=== PATIENT | female | born 1985 | race Hispanic/Latino ===

== ENCOUNTER 2016-12-21 09:10 | Emergency (ER) | payer SELFPAY ==
[2016-12-21 09:31] VITALS: BP 113/61
[2016-12-21] MEDS ORDERED: KEPPRA 1,000 MG/NS 0.75% 100ML 1,000 MG/100 ML BAG IV ONE (09:35)
[2016-12-21] MEDS ORDERED: KEPPRA 1,000 MG in D5W 100 ML IV ONE ×2 (09:40→10:00)
[2016-12-21] MEDS ORDERED: FIORICET PO ONE (10:22)
--- NOTE | 2016-12-21 10:33 | Emergency Department Report ---
HPI - General Chief Complaint: Seizure Time Seen by Provider: 12/21/16 10:06 - HPI HPI: Room 24 The patient is a 31-year-old female presenting with a chief complaint of seizure. The patient states this morning he had flickering that she was reported to have a generalized tonic-clonic seizure lasting approximately 5 minutes. The patient states her last seizure occurred over one year ago. The patient states while she was incarcerated recently she was taking Keppra and did not have any seizures. The patient states she stopped taking Keppra 2016 after she was released from incarceration. The patient now complains of a slight headache and gives a score of 8/10. Patient denies any other complaints Location: Central Nervous system Duration: 5 minutes Quality: Generalized tonic-clonic Severity: Moderate Modifying factors: [see above] Context: [see above] Mode of transportation: [not driving] ED Past Medical Hx - Past Medical History Previous Medical History?: Yes Hx Seizures: Yes - Surgical History Past Surgical History?: No - Family History Family history: no significant - Social History Smoking Status: Former Smoker Substance Use Type: None (denies illicit drug use) - Medications Home Medications: Home Medications Medication Instructions Recorded Confirmed Last Taken Type ALPRAZolam [Alprazolam] 1 tab PO TID 08/27/14 08/27/14 08/26/14 History 1tab Suboxone 8 mg-2 mg SL Film 08/27/14 08/27/14 08/27/14 05:00 History 8mg-2m buPROPion SR [Wellbutrin SR] 150 mg PO QAM 08/27/14 08/27/14 08/26/14 10:00 History 1 tab Acetaminophen/Codeine 1 tab PO Q4HR PRN #30 tablet 08/28/14 Unknown Rx [Acetaminophen-Codeine #3 TAB] Ferrous Sulfate [Feosol 325 MG tab] 325 mg PO BID #60 tablet 08/28/14 Unknown Rx Ibuprofen [Motrin 600 MG tab] 600 mg PO Q6H PRN #30 tablet 08/28/14 Unknown Rx levETIRAcetam [Keppra TAB] 500 mg PO BID #90 tablet 12/21/16 Unknown Rx ED Review of Systems ROS: Stated complaint: SEIZURE Other details as noted in HPI Comment: All other systems reviewed and negative Constitutional: denies: chills, fever Eyes: denies: eye pain, eye discharge, vision change ENT: denies: ear pain, throat pain Respiratory: denies: cough, shortness of breath, wheezing Cardiovascular: denies: chest pain, palpitations Endocrine: no symptoms reported Gastrointestinal: denies: abdominal pain, nausea, diarrhea Genitourinary: denies: urgency, dysuria, discharge Musculoskeletal: denies: back pain, joint swelling, arthralgia Skin: denies: rash, lesions Neurological: headache, other (seizure) Psychiatric: denies: anxiety, depression Hematological/Lymphatic: denies: easy bleeding, easy bruising Physical Exam - Physical Exam Vital Signs: Vital Signs 12/21/16 09:28 Pulse Rate 113 H Respiratory 18 Rate Blood Pressure 113/61 O2 Sat by Pulse 100 Oximetry General: Heart rate 95 at time of physical exam Physical Exam: GENERAL: The patient is well-developed well-nourished female lying on stretcher not appearing to be in acute distress. [] HEENT: Normocephalic. Atraumatic. Extraocular motions are intact. Patient has moist mucous membranes. NECK: Supple. No meningitic signs are noted. Trachea midline CHEST/LUNGS: Clear to auscultation. There is no respiratory distress noted. HEART/CARDIOVASCULAR: Regular. There is no tachycardia. There is no gallop rub or murmur. ABDOMEN: Abdomen is soft, nontender. Patient has normal bowel sounds. There is no abdominal distention. SKIN: There is no rash. There is no edema. There is no diaphoresis. NEURO: The patient is awake, alert, and oriented. The patient is cooperative. The patient has no focal neurologic deficits. The patient has normal speech. Cranial nerves II through XII grossly intact, no drift MUSCULOSKELETAL: There is no evidence of acute injury. ED Course Vital Signs 12/21/16 09:28 Pulse Rate 113 H Respiratory 18 Rate Blood Pressure 113/61 O2 Sat by Pulse 100 Oximetry ED Medical Decision Making - Differential Diagnosis epilepsy Critical care attestation.: If time is entered above; I have spent that time in minutes in the direct care of this critically ill patient, excluding procedure time. ED Disposition Clinical Impression: Seizure Disposition: DC-01 TO HOME OR SELFCARE Is pt being admited?: No Does the pt Need Aspirin: No Condition: Stable Instructions: Epilepsy (ED), Women and Epilepsy (ED) Additional Instructions: Return to the emergency department immediately should you develop worsening symptoms, fever, inability to tolerate food or liquid or any other concerns. Prescriptions: levETIRAcetam [Keppra TAB] 500 mg PO BID #90 tablet Referrals: KRISTIN MITCHELL MD [Primary Care Provider] - 3-5 Days MARY DIEGO MD [Staff Physician] - 3-5 Days (Dr. Diego is a neurologist. Please follow up with him for further evaluation) Time of Disposition: 10:35
== END 2016-12-21 11:00 | disposition home or self-care (01) ==
LOC: ED 09:10
DX: R56.9 Unspecified convulsions (principal); Z87.891 Personal history of nicotine dependence
CPT/HCPCS: 96365; 99283; J1953

== ENCOUNTER 2019-03-08 08:25 | Observation (INO) | payer MEDICAID ==
[~2019-03-08 08:25] MED LIST: NEOMY 40 MG/POLYMYXIN B 200,000 UNITS/ML (GU) AMPULE IR ONE; fentaNYL 100 MCG/2 ML INJ IV NR
--- NOTE | 2019-03-08 08:49 | History and Physical Report ---
History of Present Illness Date of examination: 03/08/19 Date of admission: 03/08/2019 Chief complaint: chronic pelvic pain History of present illness: 33-year-old with a history of worsening chronic pelvic pain. The patient has lateral long-standing history of dyspareunia and pelvic pain. She has undergone medical management of her symptoms without significant improvement. Also reports episodes of abnormal uterine bleeding. The patient has elected to undergo definitive surgical management. Past History Past Medical History: seizure, other (anxiety and depression) Past Surgical History: D&C, other (foot surgical procedure) Social history: smoking, other (substance abuse) - Obstetrical History : 4 Para: 3 Hx # Term Pregnancies: 3 Number of Pregnancies: 0 Spontaneous Abortions: 1 Induced : 0 Number of Living Children: 3 Medications and Allergies Allergies Allergy/AdvReac Type Severity Reaction Status Date / Time No Known Allergies Allergy Unverified 03/07/19 16:12 Home Medications Medication Instructions Recorded Confirmed Last Taken Type ALPRAZolam [Xanax TAB] 2 mg PO BID 03/07/19 03/07/19 Unknown History Mirtazapine [Remeron 30mg TAB] 30 mg PO HS 03/07/19 03/07/19 Unknown History levETIRAcetam [Keppra TAB] 750 mg PO BID 03/07/19 03/07/19 Unknown History oxyCODONE [roxiCODONE] 5 mg PO Q6HR PRN 03/07/19 03/07/19 Unknown History Active Meds: Active Medications Celecoxib (Celebrex) 200 mg PO PREOP NR Stop: 03/08/19 18:00 Fentanyl (Sublimaze) 100 mcg IV ONCE NR Stop: 03/08/19 18:00 Gabapentin (Neurontin) 300 mg PO PREOP NR Stop: 03/08/19 18:00 Lactated Ringer's (Lactated Ringers) 1,000 mls @ 100 mls/hr IV DIRECT JACK Midazolam HCl (Versed) 2 mg IV PREOP NR Stop: 03/08/19 23:59 Review of Systems All systems: negative Genitourinary: pelvic pain - Physical Exam Breasts: Positive: deferred Cardiovascular: Regular rate Lungs: Positive: Clear to auscultation Abdomen: Positive: normal appearance Results All other labs normal. Assessment and Plan - Patient Problems (1) Chronic pelvic pain in female Current Visit: Yes Status: Acute Plan to address problem: The patient is schedule for a robotic hysterectomy and bilateral salpingectomy (2) Anxiety Current Visit: No Status: Acute
[2019-03-08] MEDS ORDERED: CELECOXIB 200 MG CAP PO NR (09:00)
[2019-03-08] MEDS ORDERED: ceFAZolin/Water 2 GM/20 ML 2 GM/20 ML SYRINGE IV NR (09:00)
[2019-03-08] MEDS ORDERED: GABAPENTIN 300 MG CAP PO NR (09:00)
[2019-03-08] MEDS ORDERED: MIDAZOLAM 2 MG/2 ML INJ IV NR (09:00)
[2019-03-08] MEDS ORDERED: LACTATED RINGERS 1,000 ML IV SCH (09:00)
--- NOTE | 2019-03-08 09:14 | Anesthesia Consultation ---
Anesthesia Consult and Med Hx Date of service: 03/08/19 - Airway Anesthetic Teeth Evaluation: Dentures ROM Head & Neck: Adequate Mental/Hyoid Distance: Adequate Mallampati Class: Class II Intubation Access Assessment: Probably Good - Pulmonary Exam CTA: Yes - Cardiac Exam Cardiac Exam: RRR - Pre-Operative Health Status ASA Pre-Surgery Classification: ASA3 Proposed Anesthetic Plan: General Nerve Block: TAP - Pulmonary Hx Smoking: Yes Hx Asthma: Yes (last inhaler use 1 yr ago) Hx Respiratory Symptoms: No - Cardiovascular System Hx Hypertension: No Hx Heart Attack/AMI: No - Central Nervous System Hx Seizures: Yes (last seizure many yrs ago; will given usual dose keppra in preop) CVA: No Hx Psychiatric Problems: Yes (PTSD) - Gastrointestinal Hx Gastroesophageal Reflux Disease: No - Endocrine Hx Renal Disease: No Hx Liver Disease: No Hx Insulin Dependent Diabetes: No Hx Non-Insulin Dependent Diabetes: No Hx Thyroid Disease: No - Other Systems Hx Alcohol Use: No Hx Substance Use: Yes (past hx) Hx Obesity: No - Additional Comments Anesthesia Medical History Comments: No hx anesthetic complications.
--- NOTE | 2019-03-08 09:14 | Anesthesia Day of Surgery ---
Anesthesia Day of Surgery - Day of Surgery Patient Examined: Yes Patient H&P Reviewed: Yes Patient is NPO: Yes
[2019-03-08] MEDS ORDERED: levETIRAcetam 500 MG TAB PO NR (09:15)
[2019-03-08] MEDS ORDERED: dexAMETHasone 4 MG/ML VIAL ONE (09:39)
[2019-03-08] MEDS ORDERED: BUPIVACAINE-EPINEPHRINE/PF 0.25%-1:200,000 (30 ML) VIAL INFILTRATI ONE (09:39)
[2019-03-08] MEDS ORDERED: LIDOCAINE (1%) 10 MG/1 ML VIAL 20 ML MDV ONE (09:50)
[2019-03-08 09:59] LABS: Hematocrit 29.6 % (30.3-42.9); Hemoglobin 10.1 gm/dl (10.1-14.3); Mean Corpuscular HGB Conc 34 % (30-34); Mean Corpuscular Volume 89 fl (79-97); Platelet Count 210 K/mm3 (140-440); Red Blood Count 3.32 M/mm3 (3.65-5.03)
[2019-03-08] MEDS ORDERED: levETIRAcetam 500 MG/5 ML ORAL LIQD PO NR (10:00)
[2019-03-08] MEDS ORDERED: HYDROmorphone 1 MG/1 ML INJ ONE ×2 (10:13→12:52)
[2019-03-08] MEDS ORDERED: PROPOFOL 200 MG/20 ML VIAL IV ONE (10:13)
[2019-03-08] MEDS ORDERED: levETIRAcetam 500 MG/5 ML ORAL LIQD PO ONE (10:21)
[2019-03-08] MEDS ORDERED: NEOMY 40 MG/POLYMYXIN B 200,000 UNITS/ML (GU) AMPULE IR ONE (11:05)
[2019-03-08] MEDS ORDERED: SODIUM CHLORIDE 0.9% IRR 1,500 ML BOTTLE IR ONE (11:05)
--- NOTE | 2019-03-08 11:44 | Operative Report ---
Operative Report Operative Report: Date of surgery: 03/08/2019 Preoperative diagnoses: Chronic pelvic pain Postoperative diagnoses: Same as above Procedure: Robotic hysterectomy; Bilateral salpingectomy Surgeon: Sanjana Barrett M.D. School Aide: Leilani Drake Anesthesia: Gen. endotracheal anesthesia Estimated blood loss: 50 mL Pathology: Uterus, cervix, bilateral tubes Indication: 33-year-old with a history of worsening chronic pelvic pain. The patient failed medical management and elected to undergo definitive s urgical management. Procedure: The patient was taken to the operating room and given general endotracheal anesthesia without complication. She is prepped and draped in a normal sterile fashion. A bivalve speculum was placed in the patient's vagina and a single- tooth tenaculum placed on the anterior lip of the cervix. The uterus was sounded with the uterine sound. A [employer]Barn uterine manipulator was placed in the bivalve speculum was then removed. Attention was then turned to the patient's abdomen where a millimeter supra umbilical skin incision was then made. A Veress needle was placed and peritoneal entry was verified water-filled syringe. Insufflation of the peritoneal cavity was performed with CO2 gas. The 12 mm trocar was then placed under direct visualization. An additional 8 mm trocar was placed on the patient's left and right lateral side just opposite of the supraumbilical trocar. An additional 5 mm right lateral trocar was then placed as the accessory port. In the supraumbilical 12 mm trocar site, the Gato Arboleda device was used to place 0 vicryl suture that was secured with a hemostat. The patient was then placed in steep Trendelenburg. General survey normal uterus tubes and ovaries. No evidence of endometriotic implants. The da Leroy robot was then engaged. A fenestrated forcep was placed in arm 2 and a vessel sealer was placed in arm 1. The surgeon then transferred to the surgical console. The mesosalpinx was then isolated on the right. The vessel sealer was used to coagulate the mesosalpinx which was then transected. The tube was pedraza sected from the ovary. The tubo-ovarian ligament was then coagulated and transected. The round ligament was then coagulated and transected also. The vesicouterine peritoneum was then entered from the patient's right side. The uterine vessels were then coagulated with the vessel sealer. The vessels were then transected . Attention was then turned to the patient's left side where the tubo-ovarian ligament and mesosalpinx were again isolated coagulated and transected. The vesical peritoneum was then entered from the left and joined in the midline. Peritoneum was reflected off of the lower uterine segment. Uterine vessels were then coagulated and then transected. The blood supply to the uterus was adequately contained, a posterior colpotomy was made. The V care ring was visualized. Posterior colpotomy was created with the monopolar scissors. The incision was continued circumferentially until anterior colpotomy was made. The cervix and uterus were amputated from the vaginal cuff. The uterus was then removed along with the tubes bilaterally through the vagina and a warm laparotomy sponge was placed and maintain the pneumoperitoneum. The vaginal cuff was then closed in a running fashion with V lock suture. Irrigation of the pelvis was performed. Hemoblast was applied to the incision. The skin was then reapproximated with 4-0 Monocryl. The tissue was sent to pathology which included the cervix, uterus and tubes. The patient was then successfully extubated. She was then taken to the recovery room in stable condition. All sponge laps and needle counts were correct x2.
[2019-03-08] MEDS ORDERED: GLYCOPYRROLATE 0.4 MG/2 ML INJ ONE (11:47)
[2019-03-08] MEDS ORDERED: LIDOCAINE MPF (2%) 20 MG/1 ML VIAL 5 ML ONE (11:47)
[2019-03-08] MEDS ORDERED: NEOSTIGMINE 10MG/10 ML INJ MDV ONE (11:47)
[2019-03-08] MEDS ORDERED: ROCURONIUM 50 MG/5 ML INJ IV ONE (11:47)
[2019-03-08] MEDS ORDERED: SUCCINYLCHOLINE CHLORIDE 200 MG/10 ML INJ MDV ONE (11:47)
[2019-03-08] MEDS: KETOROLAC 30 MG/1 ML INJ IV SCH ×2 (12:00→19:09)
[2019-03-08] MEDS ORDERED: IBUPROFEN 800 MG TAB PO PRN (12:00)
[2019-03-08] MEDS ORDERED: ONDANSETRON 4 MG/2 ML INJ IV PRN (12:00)
[2019-03-08] MEDS ORDERED: oxyCODONE /ACETAMINOPHEN 5-325MG TAB PO PRN (12:00)
[2019-03-08] MEDS: HYDROmorphone 1 MG/1 ML INJ IV PRN ×2 (12:51→13:25)
[2019-03-08] MEDS ORDERED: LACTATED RINGERS 1,000 ML ONE (13:11)
[2019-03-08] MEDS: MORPHINE 4 MG/1 ML INJ IV PRN ×2 (14:45→20:03)
--- NOTE | 2019-03-08 15:42 | Post Anesthesia Evaluation ---
- Post Anesthesia Evaluation Patient Participated: Yes Airway Patent: Yes Stable Respiratory Function: Yes Nausea/Vomiting: No Temp > 96.8F: Yes Pain Manageable: Yes Adequeate Hydration: Yes Anesthesia Complications: No
[2019-03-08] MEDS: D5W/LACTATED RINGERS 1,000 ML IV SCH (19:08)
[2019-03-08] MEDS ORDERED: ZOLPIDEM 10 MG TAB PO PRN (22:00)
[2019-03-08] MEDS ORDERED: levETIRAcetam 500 MG/5 ML ORAL LIQD PO SCH (22:00)
[2019-03-09] MEDS: KETOROLAC 30 MG/1 ML INJ IV SCH ×3 (00:30→06:07)
[2019-03-09] MEDS: D5W/LACTATED RINGERS 1,000 ML IV SCH (02:08)
[2019-03-09] MEDS: MORPHINE 4 MG/1 ML INJ IV PRN (04:16)
[2019-03-09 04:20] LABS: Hematocrit 29.1 % (30.3-42.9); Hemoglobin 9.7 gm/dl (10.1-14.3)
[2019-03-09 08:38] VITALS: BP 94/61
--- NOTE | 2019-03-09 08:42 | Progress Note ---
Assessment and Plan - Patient Problems (1) Chronic pelvic pain in female Current Visit: Yes Status: Acute Plan to address problem: patient doing well discharge home (2) Anxiety Current Visit: No Status: Acute Subjective - Subjective Date of service: 03/09/19 Interval history: Patient has not voided yet. She is tolerating a regular diet without complication. Patient reports: appetite normal, pain well controlled Objective - Vital Signs Latest vital signs: Vital Signs Temp Pulse Resp BP BP Pulse Ox 03/09/19 07:28 98.1 F 71 20 94/61 100 03/09/19 05:11 98.2 F 65 18 90/51 99 03/08/19 23:34 98.1 F 63 18 96/51 96 03/08/19 20:36 97.2 F L 58 L 18 96/59 97 03/08/19 20:00 15 03/08/19 16:30 97.4 F L 20 99/58 98 03/08/19 13:55 12 03/08/19 13:50 100 03/08/19 13:40 97.5 F L 70 12 107/65 100 03/08/19 13:25 14 03/08/19 13:21 14 03/08/19 13:15 71 12 107/65 100 03/08/19 13:00 69 12 105/62 100 03/08/19 12:51 14 03/08/19 12:45 73 12 113/66 100 03/08/19 12:30 68 12 99/59 100 03/08/19 12:25 70 12 101/62 100 03/08/19 12:20 66 12 104/61 100 03/08/19 12:15 97.2 F L 87 16 101/70 100 03/08/19 09:57 68 12 128/74 100 03/08/19 09:52 70 15 125/83 100 03/08/19 09:47 84 10 L 130/81 99 03/08/19 09:38 16 03/08/19 09:36 18 03/08/19 09:10 98.6 F 71 18 107/58 97 03/08/19 09:00 98.6 F 71 16 107/58 97 Intake and Output 03/08/19 03/09/19 03/09/19 22:59 06:59 14:59 Intake Total 60 1495 Output Total 700 1800 Balance -640 -305 Intake: IV 875 D5lr 1,000 ml @ 125 mls/ 875 hr IV DIRECT JACK Rx#: [id number] Oral 60 Intake, Free Water 620 Output: Urine 700 1800 Indwelling Catheter 700 1800 Other: Total, Intake Amount 60 Total, Output Amount 100 600 Voiding Method Indwelling Catheter Weight 61.235 kg - Exam Abdomen: Present: normal appearance, soft Incision: Present: normal, dry - Labs Labs: Abnormal lab results 03/08/19 03/09/19 Range/Units 09:30 04:05 WBC 4.4 L (4.5-11.0) K/mm3 RBC 3.32 L (3.65-5.03) M/mm3 Hgb 9.7 L (10.1-14.3) gm/dl Hct 29.6 L 29.1 L (30.3-42.9) % RDW 12.0 L (13.2-15.2) %
--- NOTE | 2019-03-09 08:44 | Discharge Summary ---
Providers - Providers Date of Admission: 03/08/19 11:38 Date of discharge: 03/09/19 Attending physician: ROSALEE SMITH Primary care physician: [employer] Hospitalization Reason for admission: other (chronic pelvic pain) Procedure: other (robotic hysterectomy and salpingectomy) Incision: normal, dry Discharge diagnosis: other (Chronic pelvic pain) Hospital course: Patient admitted the day of surgery and underwent a robotic hysterectomy. See op note. Postop uncomplicated Condition at discharge: Good Disposition: DC-01 TO HOME OR SELFCARE - Discharge Diagnoses (1) Chronic pelvic pain in female Status: Acute (2) Anxiety Status: Acute Plan - Discharge Medications Prescriptions: Ibuprofen [Motrin] 800 mg PO Q8HR PRN #60 tablet PRN Reason: Pain, Mild (1-3) Oxycodone HCl/Acetaminophen [Percocet 7.5/325 mg] 1 each PO Q6HR PRN #30 tablet PRN Reason: Pain - Provider Discharge Summary Activity: no sex for 6 weeks, no heavy lifting 4 weeks, no strenuous exercise Diet: routine Instructions: routine Additional instructions: [] Smoking cessation referral if applicable(refer to patient education folder for contact #) [] Refer to [facility] Booklet Call your doctor immediately for: * Fever > 100.5 * Heavy vaginal bleeding ( >1 pad per hour) * Severe persistent headache * Shortness of breath * Reddened, hot, painful area to leg or breast * Drainage or odor from incision. * Keep incision clean and dry at all times and follow doctor's instructions regarding bathing/showering schedule followup in 4 weeks - Follow up plan
[2019-03-09] MEDS ORDERED: NICOTINE 14 MG/24 HR PATCH TD SCH (10:00)
== END 2019-03-09 09:45 | disposition home or self-care (01) ==
LOC: OR 08:25 → OB 11:38
PROVIDERS: ADMIT Obstetrics & Gynecology; ATTEND Obstetrics & Gynecology
DX: R10.2 Pelvic and perineal pain (principal); G89.29 Other chronic pain; F41.9 Anxiety disorder, unspecified; F17.200 Nicotine dependence, unspecified, uncomplicated; Z98.890 Other specified postprocedural states
CPT/HCPCS: 36415; 58570; 64450; 81025; 85014; 85018; 85027; 86850; 86900; 86901; 88307; 96374; 96375; 96376; G0378; J0330; J0690; J1100; J1170; J1885; J2250; J2270; J2405; J2704; J2710; J3010; J7120; J7121; S2900

== ENCOUNTER 2019-03-13 23:44 | Emergency (ER) | payer MEDICAID ==
[2019-03-13 23:51] VITALS: BP 125/87
[2019-03-14] MEDS ORDERED: SULFAMETHOXAZOLE/TRIMETHOPRIM 800/160MG DS TAB PO ONE (01:32)
[2019-03-14] MEDS ORDERED: oxyCODONE /ACETAMINOPHEN 5-325MG TAB PO ONE (01:32)
--- NOTE | 2019-03-14 02:08 | Emergency Department Report ---
- General Chief complaint: Skin/Abscess/Foreign Body Stated complaint: LT LEG RED WITH SWELLING POSS BUG BITE Source: patient Mode of arrival: Ambulatory Limitations: No Limitations - History of Present Illness Initial comments: 33-year-old female the past medical history of arthritis, asthma, seizures, hysterectomy performed here 03/07 presents to the hospital with complaints of possible insect bite to left medial leg times one day. Patient felt a bite sensation but did not see a particular insect. She now has redness with localized pain and swelling. No fever reported. Patient also requesting na rcotic pain medicine for pain. Patient was just prescribed 30 tablets of Percocet 7.5 mg after her surgery here on 03/09/2019. She states that her significant other has to the pills and she does not have access to them. - Related Data Home Medications Medication Instructions Recorded Confirmed Last Taken ALPRAZolam [Xanax TAB] 2 mg PO BID 03/07/19 03/07/19 03/07/19 16:00 Mirtazapine [Remeron 30mg TAB] 30 mg PO HS 03/07/19 03/07/19 03/07/19 16:00 levETIRAcetam [Keppra TAB] 750 mg PO BID 03/07/19 03/07/19 03/07/19 16:00 oxyCODONE [roxiCODONE] 5 mg PO Q6HR PRN 03/07/19 03/07/19 03/07/19 16:00 Previous Rx's Medication Instructions Recorded Last Taken Type Ibuprofen [Motrin] 800 mg PO Q8HR PRN #60 tablet 03/09/19 Unknown Rx Oxycodone HCl/Acetaminophen 1 each PO Q6HR PRN #30 tablet 03/09/19 Unknown Rx [Percocet 7.5/325 mg] Sulfamethoxazole/Trimethoprim 1 each PO BID #20 tablet 03/14/19 Unknown Rx [Bactrim DS TAB] Allergies Allergy/AdvReac Type Severity Reaction Status Date / Time No Known Allergies Allergy Unverified 03/07/19 16:12 Abscess Boil HPI - HPI Chief Complaint: Skin/Abscess/Foreign Body Stated Complaint: LT LEG RED WITH SWELLING POSS BUG BITE Home Medications: Home Medications Medication Instructions Recorded Confirmed Last Taken ALPRAZolam [Xanax TAB] 2 mg PO BID 03/07/19 03/07/19 03/07/19 16:00 Mirtazapine [Remeron 30mg TAB] 30 mg PO HS 03/07/19 03/07/19 03/07/19 16:00 levETIRAcetam [Keppra TAB] 750 mg PO BID 03/07/19 03/07/19 03/07/19 16:00 oxyCODONE [roxiCODONE] 5 mg PO Q6HR PRN 03/07/19 03/07/19 03/07/19 16:00 Previous Rx's Medication Instructions Recorded Last Taken Type Ibuprofen [Motrin] 800 mg PO Q8HR PRN #60 tablet 03/09/19 Unknown Rx Oxycodone HCl/Acetaminophen 1 each PO Q6HR PRN #30 tablet 03/09/19 Unknown Rx [Percocet 7.5/325 mg] Sulfamethoxazole/Trimethoprim 1 each PO BID #20 tablet 03/14/19 Unknown Rx [Bactrim DS TAB] Allergies/Adverse Reactions: Allergies Allergy/AdvReac Type Severity Reaction Status Date / Time No Known Allergies Allergy Unverified 03/07/19 16:12 ED Review of Systems ROS: Stated complaint: LT LEG RED WITH SWELLING POSS BUG BITE Other details as noted in HPI Comment: All other systems reviewed and negative ED Past Medical Hx - Past Medical History Previous Medical History?: Yes Hx Hypertension: No Hx Heart Attack/AMI: No Hx Congestive Heart Failure: No Hx Diabetes: No Hx Liver Disease: No Hx Renal Disease: No Hx Arthritis: Yes (Hands) Hx Headaches / Migraines: Yes Hx Seizures: Yes (last seizure many yrs ago; will given usual dose keppra in preop) Hx Asthma: Yes (last inhaler use 1 yr ago) Hx COPD: No - Surgical History Past Surgical History?: Yes Additional Surgical History: Hysterectomy 03/07/19 - Social History Smoking Status: Current Every Day Smoker Substance Use Type: None - Medications Home Medications: Home Medications Medication Instructions Recorded Confirmed Last Taken Type ALPRAZolam [Xanax TAB] 2 mg PO BID 03/07/19 03/07/19 03/07/19 16:00 History Mirtazapine [Remeron 30mg TAB] 30 mg PO HS 03/07/19 03/07/19 03/07/19 16:00 History levETIRAcetam [Keppra TAB] 750 mg PO BID 1003/07/19 03/07/19 16:00 History oxyCODONE [roxiCODONE] 5 mg PO Q6HR PRN 03/07/19 03/07/19 03/07/19 16:00 History Ibuprofen [Motrin] 800 mg PO Q8HR PRN #60 tablet 03/09/19 Unknown Rx Oxycodone HCl/Acetaminophen 1 each PO Q6HR PRN #30 tablet 03/09/19 Unknown Rx [Percocet 7.5/325 mg] Sulfamethoxazole/Trimethoprim 1 each PO BID #20 tablet 03/14/19 Unknown Rx [Bactrim DS TAB] ED Physical Exam - General Limitations: No Limitations - Other Other exam information: Gen.: No acute distress Head: Atraumatic Eyes: Normal appearance ENT: Moist mucous membranes Neck: Normal appearance, no posterior midline tenderness, no meningismus Chest: Clear to auscultation bilaterally Cardiovascular: Regular rate and rhythm Abdomen: Tina surgical scars with Dermabond skin adhesive as surgical wounds, soft, nontender, no rebound or guarding, normal bowel sounds Back: Normal appearance, nontender Extremity: Full range of motion, left medial leg circular pink discoloration with central redness with mild induration. No fluctuance Neuro: Alert oriented 3, clear speech, no focal motor or sensory deficit Psychiatric: Appropriate Skin: See extremity exam ED Course Vital Signs 03/13/19 23:48 Temperature 98.1 F Pulse Rate 72 Respiratory 16 Rate Blood Pressure 125/87 O2 Sat by Pulse 99 Oximetry ED Medical Decision Making - Medical Decision Making Patient should be treated with Bactrim for cellulitis. Nonfluctuant at this time and therefore I&D is not needed. One dose of bactrim and Percocet provided in the ED. Patient does have ibuprofen at home. Will not prescribed additional Percocet at this time given that she was recently filled a tablets of Percocet 7.5/325. - Differential Diagnosis cellulitis, abscess, contusion Critical Care Time: No Critical care attestation.: If time is entered above; I have spent that time in minutes in the direct care of this critically ill patient, excluding procedure time. ED Disposition Clinical Impression: Left leg cellulitis Disposition: TO HOME OR SELFCARE Is pt being admited?: No Does the pt Need Aspirin: No Condition: Stable Instructions: Cellulitis (ED) Additional Instructions: Take the medication as prescribed. Follow-up with your doctor or with the doctor/clinic provided. Return if symptoms worsen as indicated by your discharge instructions. Prescriptions: Sulfamethoxazole/Trimethoprim [Bactrim DS TAB] 1 each PO BID #20 tablet Referrals: PRIMARY CAREMD [Primary Care Provider] - 3-5 Days [facility] [Provider Group] - 3-5 Days MERCED LARES MD [Staff Physician] - 3-5 Days Time of Disposition: 02:13
== END 2019-03-14 02:30 | disposition home or self-care (01) ==
LOC: ED 23:44
DX: L03.116 Cellulitis of left lower limb (principal); J45.909 Unspecified asthma, uncomplicated; M19.90 Unspecified osteoarthritis, unspecified site; G43.909 Migraine, unspecified, not intractable, without status migrainosus; F17.200 Nicotine dependence, unspecified, uncomplicated; Z90.710 Acquired absence of both cervix and uterus; Z79.899 Other long term (current) drug therapy
CPT/HCPCS: 99282

== ENCOUNTER 2019-05-22 11:05 | Emergency (ER) | payer SELFPAY ==
[2019-05-22 12:05] VITALS: BP 115/64
--- NOTE | 2019-05-22 12:10 | Emergency Department Report ---
Chief Complaint: Sore Throat Stated Complaint: SORE THROAT Time Seen by Provider: 05/22/19 12:06 - HPI History of Present Illness: 34 y o female presents with URI symptoms and fever that is now resolved with tylenol denies chills, n/v/d /chest pain,sob - ROS Review of Systems: as noted in HPI - Exam Vital Signs: Vital Signs 05/22/19 12:03 Temperature 98.4 F Pulse Rate 86 Respiratory 20 Rate Blood Pressure 115/64 [Right] O2 Sat by Pulse 98 Oximetry Physical Exam: ENT: no swelling, no redness of pharynx or tonsils CHEST: RRR , CTAB , no wheeze MSE screening note: Focused history and physical exam performed. Due to findings the following was ordered: ED Medical Decision Making - Medical Decision Making 34 y o femle presents with URI with stable vitals and needing meication refill Pt was given resources to [facility] and Dr krishna PARKS no acute distress ED Disposition for MSE Clinical Impression: URI (upper respiratory infection), Medication refill Disposition: MED SCREENING EXAM-LEFT Is pt being admited?: No Does the pt Need Aspirin: No Condition: Stable Instructions: Upper Respiratory Infection (ED) Additional Instructions: Follow up with Dr Slade Referrals: [facility] [Outside] - 3-5 Days Forms: Accompanied Note, Work/School Release Form(ED) Time of Disposition: 12:11
== END 2019-05-22 12:10 | disposition left against medical advice (07) ==
LOC: ED 11:05
DX: J06.9 Acute upper respiratory infection, unspecified (principal)
CPT/HCPCS: 99282